=== PATIENT | male | born 1990 | race Two or more races ===

== ENCOUNTER 2021-01-22 00:13 | Emergency (ER) | payer MEDICAID, OTHER ==
[~2021-01-22] VITALS: Ht 180.3 cm; Wt 117.9 kg
[2021-01-22 01:01] LABS: Basophils # (auto) 0.1 10 ^3/uL (0-0.2); Basophils % (auto) 0.4 % (0.0-2.0); Eosinophils # (auto) 0 10 ^3/uL (0-0.8); Eosinophils % (auto) 0.1 % (0.0-7.0); Hematocrit 40.7 % (41.0-53.0); Hemoglobin 13.9 g/dL (13.5-17.5); Lymphocytes # (auto) 0.7 10 ^3/uL (0.4-5.4); Lymphocytes % (auto) 3.6 % (10.0-50.0); Mean Corpuscular Hemoglobin 29.8 pg (28.0-32.0); Mean Corpuscular Hgb Conc. 34.2 g/dL (32.0-36.0); Mean Corpuscular Volume 87.2 fL (80.0-100.0); Monocytes # (auto) 0.9 10 ^3/uL (0-1.3); Monocytes % (auto) 4.8 % (0.0-12.0); Neutrophils # (auto) 17.6 10 ^3/uL (1.6-8.6); Neutrophils % (auto) 91.1 % (37.0-80.0); Red Blood Cells 4.67 10^6/uL (4.5-5.90); White Blood Cell 19.3 10^3/uL (4.4-10.8)
[2021-01-22 01:20] LABS: Alanine Aminotransferase 208 U/L (16-61); Anion Gap 9 (5-15); Aspartate Aminotransferase 63 U/L (15-37); BUN/Creatinine Ratio 6.7; Blood Urea Nitrogen 19 mg/dL (7-18); Calcium 8.5 mg/dL (8.5-10.1); Carbon Dioxide 21 mmol/L (21-32); Chloride 104 mmol/L (98-107); GFR African American 34 mL/min; GFR Non-African American 28 mL/min; Glucose 154 mg/dL (74-106); Magnesium 2.3 mg/dL (1.6-2.6); Potassium 4.9 mmol/L (3.5-5.1); Sodium 134 mmol/L (136-145)
[2021-01-22 01:21] LABS: Lactic Acid w/Reflex 2.9 mmol/L (0.4-2.0)
[2021-01-22 01:25] LABS: Alkaline Phosphatase 38 U/L (45-117); Bilirubin, Total 0.9 mg/dL (0.2-1.0)
[2021-01-22] MEDS ORDERED: SODIUM CHLORIDE 0.9% 1,000 ML IV ONE ×2 (01:45→04:00)
[2021-01-22] MEDS ORDERED: VANCOMYCIN 1GM/250ML 250 ML IV ONE (01:45)
[2021-01-22] MEDS ORDERED: PIPERACILLIN-TAZOB 3.375GM 100 ML IV ONE (01:45)
[2021-01-22 02:32] LABS: INR 1.08 (0.9-1.15)
[2021-01-22 04:23] LABS: Urine Amorphous Crystal MOD /hpf (None Seen); Urine Bacteria MANY /hpf (None Seen); Urine Blood TRACE /uL (Negative); Urine Hyaline Cast FEW /lpf (0 - 2); Urine Mucus FEW (None Seen); Urine Specific Gravity 1.019 (1.001-1.035); Urine WBC 8 /hpf (0 - 3)
[2021-01-22 07:00] VITALS: BP 103/61
== END 2021-01-22 08:00 | disposition short-term general hospital (02) ==
LOC: EDBD 00:13 → ER 00:15
DX: T81.44XA Sepsis following a procedure, initial encounter (principal); K66.1 Hemoperitoneum
CPT/HCPCS: 36415; 74176; 80053; 81001; 83605; 83735; 84484; 85025; 85610; 86850; 86900; 86901; 87040; 87426; 93005; 96365; 96366; 96367; 99285; J2543; J3370; J7030